=== PATIENT | male | born 1965 | race Caucasian/White ===

== ENCOUNTER 2019-01-13 13:41 | Emergency (ER) | payer OTHER ==
[~2019-01-13] VITALS: Wt 100.0 kg
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
[2019-01-13] MEDS ORDERED: IBUP-1542 PO ×2 (17:22→17:33)
[2019-01-13 17:48] VITALS: BP 116/69; PULSE 78; RESP 20
== END 2019-01-13 17:49 | disposition home or self-care (01) ==
LOC: E/R 13:41
DX: R07.89 Other chest pain (principal); J45.909 Unspecified asthma, uncomplicated
CPT/HCPCS: 71045; 71100; 93005; Z7502